=== PATIENT | female | born 1960 | race Caucasian/White ===

== ENCOUNTER → 2017-01-29 | Outpatient (CLI) | payer OTHER ==
[~2017-01-29] MED LIST: AMLODIPINE BESYL5 MG PO; ANTIVERT25 MG PO; APIDRA SOL100 UNIT/1 SC; ATIVAN0.5 MG PO; CALCIUM ACETAT667 M2 PO; CENTRUM SILVER1 EAC4 PO; COZAAR100 MG PO; CYANOCOBALAM1000 MCG PO; FAMOTIDINE20 MG PO; HYDROMET SYRUP480 ML PO; JANUVIA25 M1 PO; LANTUS 3 M100 UNITS1 SC; LASIX40 MG PO; LO-DOSE ASPIRIN81 M1 PO; NOVOLOG PE100 UNITS/ SC; PLAVIX75 MG PO; PRILOSEC20 MG PO; PROMETHAZINE HC25 M1 PO; SENNA PLUS TAB1 EACH PO; THERA TEARS30 ML BOTH EYES; ULTRAM50 MG PO; VITAMIN E400 UNIT PO; ZOCOR20 MG PO; ZOLOFT50 MG PO
== END | disposition home or self-care (01) ==
LOC: CDC 15:33
DX: I25.2 Old myocardial infarction (principal); I25.10 Atherosclerotic heart disease of native coronary artery without angina pectoris
CPT/HCPCS: 93000

== ENCOUNTER 2017-02-01 10:34 | Day surgery (SDC) | payer OTHER ==
[~2017-02-01] VITALS: Ht 154.9 cm; Wt 102.0 kg
[2017-02-01 11:16] LABS: POINT-OF-CARE METER ID UU14174212
[2017-02-01 11:18] LABS: CHLORIDE 104 mEq/L (99-109); POTASSIUM 4.2 mEq/L (3.7-5.4); SODIUM 142 mEq/L (136-147)
[2017-02-01 11:20] LABS: GLUCOSE 127 mg/dL (70-99)
[2017-02-01 11:21] LABS: ANION GAP 14 MEQ/L (2-14)
[2017-02-01 11:22] VITALS: BP 173/69
[2017-02-01 11:24] LABS: GFR ESTIMATE (CALCULATED) 16 mL/min/
[2017-02-01 11:25] LABS: UREA NITROGEN (BUN) 58 mg/dL (9-23)
[2017-02-01 14:40] LABS: POINT-OF-CARE METER ID UU13113675
[2017-02-01 15:35] VITALS: BP 120/87
[2017-02-01 16:25] VITALS: BP 135/96
== END 2017-02-01 16:40 | disposition home or self-care (01) ==
LOC: SDC
PROVIDERS: Ophthalmology
DX: H43.12 Vitreous hemorrhage, left eye (principal); E11.65 Type 2 diabetes mellitus with hyperglycemia; I10 Essential (primary) hypertension; E78.5 Hyperlipidemia, unspecified; Z86.73 Personal history of transient ischemic attack (TIA), and cerebral infarction without residual deficits; Z79.4 Long term (current) use of insulin; E66.9 Obesity, unspecified; M19.019 Primary osteoarthritis, unspecified shoulder; Z79.82 Long term (current) use of aspirin
CPT/HCPCS: 80048; 82948; J0690; J1100; J2795